=== PATIENT | female | born 1975 | race Caucasian/White ===

== ENCOUNTER 2017-12-14 13:45 | Observation (INO) ==
[2017-12-14] MEDS ORDERED: FAMOTIDINE 20 MG/2 ML VIAL IVP ONE (14:24)
[2017-12-14] MEDS ORDERED: Sodium Chloride 0.9% 1,000 ML PRIMARY IV ONE (14:24)
[2017-12-14] MEDS ORDERED: HYDROmorphone 2 MG/1 ML IVP ONE (14:24)
[2017-12-14] MEDS ORDERED: ONDANSETRON 4 MG/2 ML VIAL IVP ONE (14:24)
[2017-12-14 14:31] LABS: BILIRUBIN,URINE SMALL (NEG); CLARITY,URINE CLEAR (CLEAR); COLOR,URINE YELLOW (Y); GLUCOSE, URINE (UA) NEGATIVE (NEG); OCCULT BLOOD,URINE SMALL (NEG); PROTEIN,URINE 30 mg/dl (NEG); UROBILINOGEN,URINE 0.2 EU/dL (0.2)
[2017-12-14 14:37] LABS: SQUAMOUS EPITHELIAL CELL,UR MODERATE; URINE SAMPLE TYPE CATH SPECIMEN
[2017-12-14 14:46] LABS: BASOPHILS # (AUTO) 0.02 10*3/UL; BASOPHILS % (AUTO) 0.3 % (0-1); EOSINOPHILS # (AUTO) 0.14 10*3/UL; Hematocrit [HCT] 39.9 % (37.0-47.0); Hemoglobin [HGB] 13.4 g/dL (12.0-16.0); LYMPHOCYTES # (AUTO) 1.51 10*3/uL; MEAN CORPUSCULAR HGB CONC 33.6 g/dL (33-37); MEAN CORPUSCULAR VOLUME 101.3 FL (81-99); MEAN PLATELET VOLUME 9.1 FL (7.4-12.2); MONOCYTES # (AUTO) 0.77 10*3/UL (0.3-0.8); MONOCYTES % (AUTO) 10.8 % (5-15); NEUTROPHILS # (AUTO) 4.66 10*3/UL; NEUTROPHILS % (AUTO) 65.6 % (50-80); RED BLOOD COUNT 3.94 10^6/uL (4.20-5.40)
[2017-12-14 14:50] LABS: PLATELET MORPHOLOGY COMMENT NORMAL MORPHOLOGY (NORM); RBC MORPHOLOGY COMMENT NORMAL MORPHOLOGY (NORM); WBC MORPHOLOGY COMMENT NORMAL MORPHOLOGY (NORM)
[2017-12-14 14:57] LABS: BLOOD UREA NITROGEN 7 mg/dL (7-22); BUN/CREATININE RATIO 11.66 (6-20); LIPASE 21 IU/L (23-300); SERUM ALBUMIN 3.5 g/dL (3.5-4.8)
--- NOTE | 2017-12-14 16:36 | DI ---
GALLBLADDER AND LIVER ULTRASOUND, 12/14/2017 2:25 PM: Clinical History: Abdominal pain. Previous Exam: None at this facility. Technique: Scans are performed through the right upper quadrant in multiple projections. The patient was rolled from side to side and the gallbladder was balloted with the probe to facilitate visualizat ion of small gallstones. The gallbladder is well distended and has a normal wall thickness. There are no gallstones. The commo n hepatic duct measures 2 mm, and the common bile duct measures 4 mm. The pancreas is visualized from the head to the body and is normal. The liver has a normal sonographic texture but the liver measure ment indicates there is hepatomegaly. The right kidney, IVC, and aorta are normal. Readin. Normal gallbladder ultrasound. 2. The liver texture is normal but there is hepatomegaly. 3. The right kidney, pancreas, IVC, and aorta are normal.
--- NOTE | 2017-12-14 17:49 | DI ---
CT ABDOMEN SCAN WITH IV CONTRAST, 12/14/2017 3:30 PM : Clinical History: Abdominal pain. Previous Exam: 12/10/2017. Scans are performed from the lower lung bases through the liver and kidneys with IV contrast. 75 mL o f Isovue 300 was injected IV. Volumen oral enterography contrast was administered. Water was used for rectal contrast. The lung bases are clear. There is mild hepatomegaly but the liver itself is otherwise normal. The ga llbladder is grossly normal. There is no abnormality of the spleen, pancreas, and adrenal glands. Bot h kidneys are normal in size, shape, position and contour. There is no hydronephrosis or hydroureter. No renal or ureteral calculi are present. There are no abnormal retrocrural or periaortic nodes. No ascites is present. READIN. There is mild hepatomegaly and in retrospect it was present but not commented upon in the prior r eport. 2. There is no free air or fluid. CT PELVIS SCAN WITH IV CONTRAST, 12/14/2017 3:30 PM: Clinical History: See above. Previous Exam: 12/10/2017. Scans are performed from just superior to the umbilicus to the symphysis pubis with IV contrast. This is the same bolus of contrast used for the CT scans of the abdomen. Scans through the lower abdomen and pelvis show no masses, enhancing lesions, or abnormal fluid colle ctions. There is no adenopathy. The appendix is normal. There are loops of small bowel probably in th e proximal jejunum that are fluid-filled and mildly dilated but have no air-fluid levels. The mucosa shows a normal enhancement. There is no evidence of an internal hernia. The remainder of the small jade wel including the terminal ileum is normal. The colon is also normal. There is infiltrative/inflammat ory change involving the mesenteric fat that primarily is the greater omentum but also mesenteric fat toward the right gutter. These changes are new since the previous exam. There are no hernias. The ut erus and ovaries are normal and unchanged from the previous exam. READIN. There is inflammatory/infiltrative change of the mesenteric fat in the region of the right gutter and probably involving the greater omentum, and these findings are new since the previous exam of . However, no abnormality of the large or small bowel is noted with the exception of some mild ly distended loops of proximal small bowel that do not have air-fluid levels. There is no evidence of an internal hernia. 2. Scans of the pelvis are otherwise normal. There is no fluid in the cul-de-sac. The uterus and ova sheba are normal and unchanged from the prior exam.
[2017-12-14] MEDS ORDERED: HYDROmorphone 2 MG/1 ML IVP PRN (18:07)
[2017-12-14] MEDS ORDERED: ONDANSETRON 4 MG/2 ML VIAL IVP PRN (18:08)
[2017-12-14] MEDS ORDERED: D5-1/2NS 1,000 ML PRIMARY IV SCH (18:15)
--- NOTE | 2017-12-14 19:10 | CONSULT ---
Consult Note - Consult Consult Date: 12/14/17 Reason for Consult: PreOp Consulation : General Surgery Requesting Physician: Dr. Dangelo. Dr. Bermeo. Primary Care Provider: NONE NONE - History of Present Illness History of Present Illness: The patient is a 42-year-old female with approximately 7 days of abdominal pain , nausea, vomiting, fever and chills. She has not actually taken her temperature but has felt feverish and had chills. She has never had this before. She was seen in the emergency department on 12/10/2017. Her last menstrual period was 12/08/2017. She had normal lab work done. She had a CT scan which was normal. It was done with IV contrast. She was diagnosed with gastroenteritis and sent home. She reports the pain has progressively gotten worse. She hadn't had a bowel movement since her last emergency room visit. She has had nausea and vomiting. Hasn't really been able to keep anything down. She returned today for increased pain and nausea. She says the pain starts in the suprapubic region and goes up her right side. She reports it kind of circles around in her abdomen. She reports continued nausea and vomiting. She doesn't remember when she last passed gas. She denies vaginal discharge. She does have some pressure with urination but no burning. The pain is exacerbated by movement and coughing. It is constant. It is a deep throbbing pain. She has tried ibuprofen without help. On arrival she was afebrile and her vital signs were stable. Her white count was normal. Her comprehensive metabolic panel was normal. Her test was negative. Amylase and lipase were normal. Urinalysis showed 4-8 red cells and 4-8 white cells per high power field but it was a clean catch urine. According to the emergency room physician her exam was unchanged. He was the same physician that saw her on the . She had a gallbladder ultrasound done which was normal. She had a CT scan of her abdomen and pelvis with oral, rectal , and IV contrast. There is some mesenteric and omental infiltrated with inflammatory changes. This extends to the right gutter. There is no internal hernia. There is no obviously infarcted omentum. There is no torsed appendix epiploica. There is some 3 cm dilated small bowel but again she had oral contrast. There is no evidence of bowel obstruction. There is normal blood supply to the bowel. The colon appears normal. The appendix was normal. The uterus and ovaries are normal. There is no free air or free fluid. She is being admitted to the hospitalist service and I am asked to see her in consultation. Review of Systems - Constitutional Constitutional: REPORTS: Fever / Chills, Fatigue, Weakness - Gastrointestinal Gastrointestinal / Abdominal: REPORTS: Nausea, Vomiting, Abdominal Pain, Poor Appetite, Regurgitation, See HPI Past Medical History Medical History: Anxiety. Asthma. History of seizure disorder from a traumatic injury(None for a long time.) Surgical History: Tonsillectomy and adenoidectomy. section. Wrist reconstruction. Tobacco Use: Current Every Day Smoker (One half pack a day.) In the Past 12 Months, Have Used or Abuse Any of the Following Substance: None Alcohol Use: Occasionally Medication / Allergies Home Medications: Home Medications 3 Medication Instructions Recorded Confirmed Type Ibuprofen 600 mg PO TID PRN 12/10/17 12/14/17 History Allergies/Adverse Reactions: Allergies 3 Allergy/AdvReac Type Severity Reaction Status Date / Time No Known Allergies Allergy Verified 12/14/17 13:51 Results - Labs CBC and BMP: 12/14/17 14:43 12/14/17 14:43 - Imaging Status: Image Reviewed by Me, Report Reviewed by Me (And discussed with the radiologist.) Exam - Vitals Vital Signs: Vital Signs Temperature 98.2 F Temperature Source Temporal Artery Scan Pulse Rate [Pulse Oximeter] 94 Respiratory Rate 17 Blood Pressure [Left Arm] 111/74 Pulse Ox 93 Oxygen Delivery Method Room Air Height 5 ft 2 in Weight 155 lb - General General Appearance: Cooperative, Mild Distress (Moves about freely in the bed.) - Respiratory Respiratory Exam: POSITIVE: Clear to Auscultation - Bilaterally, Breathing Non Labored - Cardiovascular Cardiovascular Exam: POSITIVE: RRR, No Murmur - GI/Abdominal GI/Abdominal Exam: POSITIVE: Normal Bowel Sounds, Non Distended, Soft Additional GI/Abdominal Exam Details: The abdomen is full but soft. Good bowel tones. When I press around her abdomen with my stethoscope she doesn't seem that tender. When I press with my hand it elicits pain response throughout her abdomen. She has a nonfocal exam. There is no peritoneal irritation. Not an acute surgical abdomen. There is possible mild rebound changes in the left and right lower quadrant. There is some mild right-sided costovertebral angle tenderness. - Rectal Rectal Exam: POSITIVE: Deferred - Neurological Neurological Exam: POSITIVE: Alert, Oriented x 3 - Psychiatric Psychiatric Exam: POSITIVE: Normal Affect, Normal Mood Assessment and Plan - Patient Problems (1) Abdominal pain Current Visit: No Status: Acute Priority: High Onset Date: ~12/07/17 Comment: Etiology unclear. No obvious source for the inflammatory/infiltrative changes in the omentum and mesentery. Not an acute abdomen. I would recommend a trial of conservative care. Would give her a gram of Invanz and repeated every 24 hours. I would get her well hydrated. I would follow her labs and clinical course. If she is not better within 48 hours or shows any signs of deterioration will proceed with exploratory laparoscopy. I discussed all the above with the patient and Dr. Bermeo. I will follow her with you. Code(s): R10.9 - Unspecified abdominal pain (2) Nausea and vomiting Current Visit: Yes Status: Acute Priority: Medium Onset Date: ~12/07/17 Comment: Hydration and appropriate medications. No more than clear liquids at this time pending clinical course. Code(s): R11.2 - Nausea with vomiting, unspecified
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
[2017-12-14] MEDS ORDERED: NICOTINE 14 MG /DAY PATCH TRANSDERM ONE (19:49)
[2017-12-14] MEDS ORDERED: LIDOCAINE W/ SODIUM BICARB 0.5 ML SYR SUBD PRN (19:50)
[2017-12-14] MEDS ORDERED: ACETAMINOPHEN 325 MG TABLET PO PRN (19:50)
[2017-12-14] MEDS ORDERED: CALCIUM CARBONATE 500 MG (TUMS) CHEWABLE TABLET PO PRN (19:50)
[2017-12-14] MEDS ORDERED: DOCUSATE 100 MG CAPSULE PO PRN (19:50)
[2017-12-14] MEDS: Ertapenem Inj 1 GM in Sodium Chloride 0.9% 100 ML IV SCH (20:15)
[2017-12-14] MEDS: NICOTINE 14 MG /DAY PATCH TRANSDERM SCH (20:16)
[2017-12-14] MEDS: D5-1/2NS + 20mEq KCL 1,000 ML PRIMARY IV SCH (20:16)
--- NOTE | 2017-12-14 22:38 | PDOC ---
Abdomen/Flank HPI - General Chief Complaint: Abdomen Pain Stated Complaint: ABDOMINAL PAIN X1 WEEK Date Seen by Provider: 12/14/17 Time Seen by Provider: 14:10 Source: POSITIVE: Patient, Old records Exam Limitations: POSITIVE: No limitations Nurse's Notes Reviewed & Considered: Yes - History of Present Illness Initial Comments: The patient is a 42-year-old female. She presents to the emergency room complaining of a one-week history of poorly localized abdominal pain; somewhat more on the right than the left. She states she has had some "vomiting and dry heaves ". She states that she is "getting dizzy because I'm not eating ". She states she's not had a bowel movement for the past 3 or 4 days. She denies any known fevers or chills. No melena, hematochezia, hematemesis, dysuria or hematuria. She's not had any abdominal surgery. She states she has had " kidney stones "in the past. Emergency room on 12/10/2017 and had normal laboratory values at that time and she also had a CT scan of the abdomen and pelvis with IV contrast which was read as normal by the radiologist. Patient states that her condition is not improved" in fact "patient states her pain is a little bit more persistent and severe now than it was on 12/10/2017. Body Location Affected: REPORTS: Abdomen Timing: REPORTS: Constant Duration: >1 week (Approximately one week) Severity: Moderate Quality: REPORTS: "Pain" Abdominal Pain Onset Location: REPORTS: Generalized abdomen (Somewhat worse on the right than the left) Abdominal Pain Radiation: REPORTS: No radiation Context: DENIES: None, Activity, Bending, Coughing, Fall, Lifting, Near Fall, Rest, Sitting, Sleep, Standing, Turning, Emotional stress, Camping, Bad Food, Out of Country Travel, Other, Recent Surgery, Recent Trauma Modifying Factors: improves with: Vomiting (Intermittent "vomiting and dry heaves ") Associated Symptoms: REPORTS: Nausea, Vomiting, Weakness, Constipation (No bowel movement for 3 or 4 days according to patient). DENIES: Denies symptoms, Back pain, Bloody Emesis, Chest pain, Coffee Grounds Emesis, Chills, Diaphoresis , Fever, Fatigue, Headache, Heartburn, Loss of Appetite, Rash, Shortness of breath, Swelling/mass in abdomen, Syncope, Testicular Pain, Grossly Bloody Diarrhea, Diarrhea, Dysuria, Incontinent Stool, Incontinent Urine, Mucous Diarrhea, Difficulty Walking, Dizziness, Light Headedness, Numbness, Other Similar Symptoms Previously: Yes (as above) Recent Care Received: REPORTS: Recently Seen, Treated by MD (As above) Any Prior Injuries Related to Current Complaint?: No - Patient Home Medications Home Medications: Home Medications Ibuprofen 600 mg PO TID PRN 12/10/17 - Patient Allergies Allergies/Adverse Reactions: Allergies 3 Allergy/AdvReac Type Severity Reaction Status Date / Time No Known Allergies Allergy Verified 12/14/17 13:51 Past Medical History - heen HEENT History: Denies History Cardiovascular History: Denies History Respiratory History: Asthma Gastrointestinal History: Other (please comment) Additional Gastrointestinal History: ABD PAIN AND BLOATING X 2-3 MONTHS Genitourinary History: Denies History Endocrine History: Denies History Musculoskeletal History: Denies History Prosthesis or Implant: No Neurological History: Seizures 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 Blood Disorders: Denies History Psychiatric History: Denies History Additional Psychiatric History: DOES REPORT SHE TAKES LORAZEPAM AND DENIES ETOH USE History of Sexually Transmitted Diseases: No (UNKNOWN) Female Reproductive History: Denies History LMP: 12/08/2017 Cancer History: Denies History In Past Year Been Physically Harmed or Verbally Threatened: No (PER PATIENT) History of MDRO: No History of Other Communicable Diseases: No (UNKNOWN) Tobacco Use: Current Every Day Smoker (One half pack a day.) Alcohol Use: Rarely In the Past 12 Months, Have Used or Abuse Any Substance: None Previous Surgical History: Yes Type / Date of Surgery: TONSILLECTOMY. RIGHT WRIST Anesthesia Reactions: No Malignant Hyperthermia: No Family History of Malignant Hyperthermia: No Significant Family History: No pertinent family hx Past Medical History Reviewed: Reviewed - No Changes ROS - Limitations ROS Limitations: No Limitations Constitution: REPORTS: Denies Symptoms Cardiovascular: REPORTS: Denies Cardiac Symptoms Respiratory: REPORTS: Denies Resp Symptoms Neurological: REPORTS: Denies Neuro Symptoms Gastrointestinal: REPORTS: Abdominal Pain, Nausea, Vomitting ("Dry heaves") Endocrine: REPORTS: Denies Symptoms Musculoskeletal: REPORTS: Denies MS Symptoms Genitourinary: REPORTS: Denies Symptoms Eyes: REPORTS: Denies Symptoms ENT: REPORTS: Denies Symptoms Skin: REPORTS: Denies Skin Symptoms Lympathic: REPORTS: Denies Lympathic Symptoms Immunologic: POSITIVE: Denies Symptoms Psychiatric: POSITIVE: Denies Psych Symptoms Abdominal/Flank Pain PE - General Appearance General Appearance: POSITIVE: Alert, Cooperative, No Evidence of Trauma, Mild Distress. NEGATIVE: No Acute Distress - HEENT HEENT: POSITIVE: Head Inspection Nml, Eyes Inspection Nml, Ears Inspection Nml, Nose Inspection Nml, Oral/Dental Inspect. Nml, Pharynx Inspect. Nml, PERRL, EOMI - Neck Neck: POSITIVE: Normal Inspection, No Apparent Injury - Respiratory Respiratory: POSITIVE: No Respiratory Distress, Breath Sounds Normal, Chest Non- Tender - Cardiovascular Cardiovascular: POSITIVE: Regular Rate and Rhythm, Heart Sounds Normal, Equal Pulses, Strong Pulses Peripheral Pulses: Radial (R): 2+, Radial (L): 2+ - Chest Chest: POSITIVE: Non Tender - Abdomen Abdomen: Soft: (All Quadrants), Normal Bowel Sounds: (All Quadrants) (bowel sounds somewhat depressed), No Splenomegaly: (All Quadrants), No Hepatomegaly: ( All Quadrants), No Guarding: (All Quadrants), No Rebound: (All Quadrants), No Palpable Pulse: (All Quadrants), No Palpabale Mass: (All Quadrants), No Rigidity : (All Quadrants), Tenderness Noted: (RUQ), (LUQ), (RLQ), (LLQ), Hypoactive Bowel Sounds: (RUQ), (LUQ), (RLQ), (LLQ), Distention: (All Quadrants) (patient states her abdomen feels distended) Additional Abdominal Details: Abdominal examination shows bowel sounds be present but somewhat depressed. Patient complains of pain on palpation generalized over the abdomen, but somewhat more on the right than the left, especially the right upper portion of the abdomen. Patient states that her abdomen feels distended, but no gross distention is appreciated clinically. No masses, organomegaly or rebound. - Back Back: POSITIVE: Normal Inspection. NEGATIVE: CVA Tenderness (R), CVA Tenderness (L) - Skin Skin: POSITIVE: Intact, Normal For Race, Warm, Dry, No Rash - Extremities Extremity: Non-Tender: (All Extremities), Normal ROM: (All Extremities), Normal Inspection: (All Extremities) - Neurological Neurological: POSITIVE: Affect Apporpriate, Oriented X3, weasand trimmer Normal As Tested, Motor Normal, Sensation Normal - Psychological Psychiatric: POSITIVE: Affect Appropriate, Mood Appropriate Images - Complete Complete: 1 - Abdominal discomfort/pain Abdomen Progress - Results Reviewed by me Xrays/CTs/US Reviewed by me: Yes Discussed with Radiologist: Yes Radiology Findings: Limited abdominal ultrasound of the right upper quadrant was read as normal with no evidence of gallstones. CT scan of the abdomen and pelvis with IV, oral and rectal contrast was obtained. Radiologist reports mildly dilated loops of the small bowel. He also reports an infiltrative, inflammatory change in the mesenteric fat mostly in the greater omentum but also in the right colic gutter. This changes reportedly new from the CT scan done 12/10/2017. Lab Results Reviewed by Me: Yes ( test negative. Amylase and lipase and urinalysis normal) CBC and BMP: 12/14/17 14:43 12/14/17 14:43 - Patient's Progress Pain Medication Addressed: POSITIVE: Yes (Patient given 2 mg of Dilaudid in the emergency room with good effect) School/Work Release Addressed: POSITIVE: Not Applicable Re-examine Time: 17:55 Re-Examine Comment: Patient states pain is somewhat less on discharge. Patient advised of the results of her abdominal ultrasound and CT scan. Advised I'm not sure what the source of her abdominal pain is, but there is radiographically some evidence of an infiltrate you've or inflammatory process going on in her mesenteric fat. Patient admitted to hospitalist with consultation to surgeon for further evaluation and treatment. - Consult Consult (If Yes, Name of Consulting MD & Time Called): Yes (Dr. Gutierrez and Elvie, [id number]) Consulting MD will see pt:: POSITIVE: [facility] [place] Admit Counseled: POSITIVE: Patient, RE: Lab Results, RE: Radiology Results, RE: DX, RE : Need for F/U Patient Care Time - Estimated PCT Patient Care Time (In Minutes): 60 Vital Signs - Recent Vital Signs Vital Signs: Vital Signs (Last 8 hours) Temp Pulse Pulse Resp BP BP Pulse Ox 12/14/17 18:55 97.6 F 82 16 95/63 92 12/14/17 18:30 98.1 F 91 16 103/75 93 - VS Reviewed Vital Signs Reviewed: Yes Discharge Clinical Impression: Abdominal pain Discharge Disposition: Admit to Inpatient Condition: Stable Date Decision to Admit to Inpatient: 12/14/17 Time Decision to Admit to Inpatient: 17:45
[2017-12-14] MEDS: HYDROmorphone 2 MG/1 ML IVP PRN (23:37)
[2017-12-15] MEDS: HYDROmorphone 2 MG/1 ML IVP PRN ×3 (02:58→08:00)
[2017-12-15 04:34] LABS: BASOPHILS # (AUTO) 0.02 10*3/UL; BASOPHILS % (AUTO) 0.3 % (0-1); EOSINOPHILS # (AUTO) 0.16 10*3/UL; EOSINOPHILS % (AUTO) 2.7 % (0-8); Hematocrit [HCT] 35.2 % (37.0-47.0); Hemoglobin [HGB] 11.7 g/dL (12.0-16.0); LYMPHOCYTES # (AUTO) 1.55 10*3/uL; MEAN CORPUSCULAR HEMOGLOBIN 33.7 PG (27-31); MEAN CORPUSCULAR HGB CONC 33.2 g/dL (33-37); MEAN CORPUSCULAR VOLUME 101.4 FL (81-99); MEAN PLATELET VOLUME 9.3 FL (7.4-12.2); MONOCYTES # (AUTO) 0.77 10*3/UL (0.3-0.8); MONOCYTES % (AUTO) 13.1 % (5-15); NEUTROPHILS # (AUTO) 3.34 10*3/UL; NEUTROPHILS % (AUTO) 57.1 % (50-80); RED BLOOD COUNT 3.47 10^6/uL (4.20-5.40)
[2017-12-15 04:54] LABS: BLOOD UREA NITROGEN 4 mg/dL (7-22); SERUM ALBUMIN 2.7 g/dL (3.5-4.8)
[2017-12-15] MEDS: D5-1/2NS + 20mEq KCL 1,000 ML PRIMARY IV SCH ×2 (05:02→16:31)
[2017-12-15 05:05] LABS: PLATELET MORPHOLOGY COMMENT NORMAL MORPHOLOGY (NORM); RBC MORPHOLOGY COMMENT NORMAL MORPHOLOGY (NORM); WBC MORPHOLOGY COMMENT NORMAL MORPHOLOGY (NORM)
[2017-12-15] MEDS: ONDANSETRON 4 MG/2 ML VIAL IVP PRN (08:00)
--- NOTE | 2017-12-15 09:18 | PDOC(PROG) ---
Date and Time of Service: 12/15/2017 9 AM Interval History: Reports she threw up all night but intake and output shows 100 mL of emesis only. When I walked in the room she was sitting upright in bed looking quite comfortable. She reports her pain is about the same. She reports the Dilaudid is giving her a headache and requests a change in medication. She denies flatus or a bowel movement. She thinks she might overall feel a little bit better. Objective : Data - Labs CBC and BMP: 12/15/17 04:13 12/15/17 04:13 - Imaging Imaging Details: CT is reviewed with the radiologist. No changes from prior dictation. - Vital Signs Vital Signs and I&O: Vital Signs - Last Taken Temperature 98.0 F 12/15/17 04:29 Pulse Rate 89 12/15/17 07:00 Respiratory Rate 21 12/15/17 04:29 Blood Pressure 98/59 12/15/17 04:29 Pulse Ox 96 12/15/17 07:00 Intake and Output (24hr x 4 totals) 12/13/17 12/14/17 12/15/17 12/16/17 05:59 05:59 05:59 05:59 Intake Total 1600 / 1600 Output Total 1101 / 1101 200 / 200 Balance 499 / 499 -200 / -200 Objective : Exam - General General Appearance: No Acute Distress (Looks quite comfortable.), Cooperative - Respiratory Respiratory Exam: Clear to Auscultation - Bilaterally, Breathing Non Labored - Cardiovascular Cardiovascular Exam: RRR, No Murmur - GI/Abdominal GI/Abdominal Exam: Soft, Diminished Bowel Sounds (Upper abdominal bowel tones are normal. Lower slightly diminished.) Additional GI/Abdominal Exam Details: The abdomen is full but soft. Decent bowel tones. Diffuse nonfocal and mild tenderness. No peritoneal signs. Seems a little less tender than yesterday. Tenderness is worse when palpation with fingers is done versus stethoscope. - Neurological Neurological Exam: Alert, Oriented x 3 - Psychiatric Psychiatric Exam: Normal Affect, Normal Mood Assessment and Plan - Patient Problems (1) Abdominal pain Current Visit: Yes Status: Acute Priority: High Onset Date: ~12/07/17 Comment: Certainly no deterioration and possibly slightly better. Has only received 1 dose of antibiotics. Continue current course at this time. See history of present illness. Code(s): R10.9 - Unspecified abdominal pain (2) Nausea and vomiting Current Visit: Yes Status: Acute Priority: Medium Onset Date: ~12/07/17 Comment: Continue current management. Code(s): R11.2 - Nausea with vomiting, unspecified Qualifiers: Vomiting type: unspecified Vomiting Intractability: intractable Qualified Code(s): R11.2 - Nausea with vomiting, unspecified
--- NOTE | 2017-12-15 11:47 | PDOC(PROG) ---
Date and Time of Service: 12/15/2017, 1145 Interval History: No chest pain, shortness of breath, and abdominal pain has improved a bit. The patient states that she had some vomiting, but still has an appetite today which is improvement over the last 6 days. She wants to try some water and saltine crackers today. Objective : Data - Labs CBC and BMP: 12/15/17 04:13 12/15/17 04:13 Additional Lab Results: 12/14/17 12/15/17 20:05 04:13 Troponin I < 0.012 Total Protein 5.9 L Albumin 2.7 L Globulin 3.2 Albumin/Globulin Ratio 0.80 L Objective : Exam - General General Appearance: No Acute Distress, Cooperative Additional General Exam Details: Vital Signs - Last Taken Temperature 98.0 F 12/15/17 04:29 Pulse Rate 90 12/15/17 09:00 Respiratory Rate 21 12/15/17 04:29 Blood Pressure 98/59 12/15/17 04:29 Pulse Ox 95 12/15/17 11:00 - ENT ENT Exam: Mucous Membranes Moist - Respiratory Respiratory Exam: Clear to Auscultation - Bilaterally, Breathing Non Labored - Cardiovascular Cardiovascular Exam: RRR, No Murmur, No Clicks, No Gallops, No Rubs, No JVD - GI/Abdominal GI/Abdominal Exam: Normal Bowel Sounds, Non Tender, Non Distended, Soft Additional GI/Abdominal Exam Details: I was not able to elicit tenderness with palpation of the abdomen today. No complaints from the patient during exam. - Extremities Extremities Exam: No Clubbing Present, No Edema Present, No Cyanosis Present - Neurological Neurological Exam: Alert, Oriented x 3, Normal Gait, No Facial Droop, Speech Intact / Clear, Moves All Extremities Equally Assessment and Plan - Patient Problems (1) Abdominal pain Current Visit: Yes Status: Acute Priority: High Onset Date: ~12/07/17 Code(s): R10.9 - Unspecified abdominal pain (2) Nausea and vomiting Current Visit: Yes Status: Acute Priority: Medium Onset Date: ~12/07/17 Code(s): R11.2 - Nausea with vomiting, unspecified Qualifiers: Vomiting type: unspecified Vomiting Intractability: intractable Qualified Code(s): R11.2 - Nausea with vomiting, unspecified (3) Tobacco abuse Current Visit: Yes Status: Acute Code(s): Z72.0 - Tobacco use (4) Hypokalemia Current Visit: Yes Status: Acute Code(s): E87.6 - Hypokalemia - Assessment / Plan Additional Assessment/Plan Details: Continue IV fluids with potassium Labs ordered for tomorrow already, CMP and CBC with differential. Try clear liquids and saltine crackers today, nothing by mouth post midnight encase of any exploratory laparoscopy, but overall patient states she has improved and feels better. She attributes this to antibiotics. Continue Invanz. I feel if she continues to improve on antibiotics, and may be reasonable to do a course of antibiotics as if this could've been a microperforation with probable follow-up colonoscopy or other studies as an outpatient. We'll discuss with surgery in a.m.
[2017-12-15] MEDS: MORPHINE SULFATE 2 MG/1 ML IVP PRN ×3 (12:38→19:28)
[2017-12-15] MEDS: PANTOPRAZOLE IV 40 MG VIAL IVP SCH ×2 (12:38→22:36)
[2017-12-15] MEDS: Ertapenem Inj 1 GM in Sodium Chloride 0.9% 100 ML IV SCH (19:29)
[2017-12-15] MEDS: NICOTINE 14 MG /DAY PATCH TRANSDERM SCH (19:29)
[2017-12-15] MEDS ORDERED: Patch Removal PATCH TRANSDERM SCH (20:00)
[2017-12-15] MEDS ORDERED: Zolpidem Tab 5 MG TAB PO ONE (22:23)
[2017-12-16] MEDS: D5-1/2NS + 20mEq KCL 1,000 ML PRIMARY IV SCH ×3 (00:52→10:56)
[2017-12-16] MEDS: MORPHINE SULFATE 2 MG/1 ML IVP PRN ×2 (00:52→07:04)
[2017-12-16 04:24] LABS: BASOPHILS # (AUTO) 0.03 10*3/UL; BASOPHILS % (AUTO) 0.5 % (0-1); EOSINOPHILS # (AUTO) 0.14 10*3/UL; EOSINOPHILS % (AUTO) 2.4 % (0-8); Hematocrit [HCT] 37.5 % (37.0-47.0); Hemoglobin [HGB] 12.7 g/dL (12.0-16.0); MEAN CORPUSCULAR HEMOGLOBIN 34.2 PG (27-31); MEAN CORPUSCULAR HGB CONC 33.9 g/dL (33-37); MEAN CORPUSCULAR VOLUME 101.1 FL (81-99); MONOCYTES # (AUTO) 0.59 10*3/UL (0.3-0.8); NEUTROPHILS # (AUTO) 3.43 10*3/UL; NEUTROPHILS % (AUTO) 58.1 % (50-80); RED BLOOD COUNT 3.71 10^6/uL (4.20-5.40)
[2017-12-16 04:31] LABS: PLATELET MORPHOLOGY COMMENT NORMAL MORPHOLOGY (NORM); RBC MORPHOLOGY COMMENT NORMAL MORPHOLOGY (NORM); WBC MORPHOLOGY COMMENT NORMAL MORPHOLOGY (NORM)
[2017-12-16 04:46] LABS: SERUM ALBUMIN 2.8 g/dL (3.5-4.8)
[2017-12-16 05:01] LABS: BLOOD UREA NITROGEN 2 mg/dL (7-22)
[2017-12-16] MEDS: ONDANSETRON 4 MG/2 ML VIAL IVP PRN (07:13)
[2017-12-16 07:19] VITALS: RESP 16
[2017-12-16] MEDS: PANTOPRAZOLE IV 40 MG VIAL IVP SCH (10:36)
[2017-12-16 11:01] VITALS: BP 114/72; TEMP 97.3; O2SAT 95
--- NOTE | 2017-12-16 11:29 | PDOC(PROG) ---
Date and Time of Service: 12/16/2017 11:15 AM Interval History: Feels much better. Some mild abdominal pain and nausea. No further vomiting. Passing gas. Had a small bowel movement. She feels much better than on admission. Really wants to eat and go home. No PID risk factors. No vaginal discharge. Objective : Data - Labs CBC and BMP: 12/16/17 04:08 12/16/17 04:08 - Vital Signs Vital Signs and I&O: Vital Signs - Last Taken Temperature 97.3 F 12/16/17 10:59 Pulse Rate 78 12/16/17 10:59 Respiratory Rate 16 12/16/17 10:59 Blood Pressure 114/72 12/16/17 10:59 Pulse Ox 95 12/16/17 10:59 Intake and Output (24hr x 4 totals) 12/14/17 12/15/17 12/16/17 12/17/17 05:59 05:59 05:59 05:59 Intake Total 2600 / 2600 4783 / 4783 Output Total 1101 / 1101 650 / 650 150 / 150 Balance 1499 / 1499 4133 / 4133 -150 / -150 Objective : Exam - General General Appearance: No Acute Distress, Cooperative - Respiratory Respiratory Exam: Clear to Auscultation - Bilaterally, Breathing Non Labored - Cardiovascular Cardiovascular Exam: RRR, No Murmur - GI/Abdominal GI/Abdominal Exam: Normal Bowel Sounds, Non Tender, Non Distended, Soft Additional GI/Abdominal Exam Details: Minimal if any tenderness. Soft. Positive bowel tones. - Neurological Neurological Exam: Alert, Oriented x 3 - Psychiatric Psychiatric Exam: Normal Affect, Normal Mood Assessment and Plan - Patient Problems (1) Abdominal pain Current Visit: Yes Status: Acute Priority: High Onset Date: ~12/07/17 Comment: Etiology remains unclear. Better on conservative treatment. I would be fine with 1 more dose of IV antibiotics and then home on 5 days of oral Augmentin. Patient should follow up in my office next week. We will plan an outpatient CT with oral contrast for follow-up. Consider colonoscopy. I discussed the above with the patient and Dr. Bermeo. Patient has been instructed to return to the hospital for worsening of symptoms. Code(s): R10.9 - Unspecified abdominal pain (2) Nausea and vomiting Current Visit: Yes Status: Acute Priority: Medium Onset Date: ~12/07/17 Comment: Resolved. Code(s): R11.2 - Nausea with vomiting, unspecified Qualifiers: Vomiting type: unspecified Vomiting Intractability: intractable Qualified Code(s): R11.2 - Nausea with vomiting, unspecified
[2017-12-16] MEDS ORDERED: PANTOPRAZOLE 40 MG TABLET PO ONE (11:36)
[2017-12-16] MEDS ORDERED: HYDROcodone-APAP 5 MG -325 MG TABLET PO PRN (12:54)
--- NOTE | 2017-12-16 13:11 | DCSUMMARY ---
Hospitalization Summary Admit Date: 12/14/2017, 1304 Discharge Date: 12/16/17 Primary Diagnosis:: mesenteric inflammation/abdominal pain Hospital Course: This is a very pleasant 6-year-old female with abdominal pain and mesenteric inflammation on CT scan on admission. She was admitted with observation, surgery consultation was obtained as well. There was no evidence of any perforation, ovarian torsion, ovarian infection, or bowel perforation, and it was very unclear as to what caused this mesenteric inflammation. Certainly mesenteric infarct could be in the differential as well as a carcinomatosis, but the patient got significantly better fairly quickly with antibiotics. We feel the best thing to do at this time is to treat this as if it could've been an infection, and treat for another 5 days with Augmentin therapy after a dose of Invanz today. That will essentially give her a total of 8 days of therapy. The patient's nausea and vomiting got better and she was able to be advanced to regular diet prior to discharge. The patient had microscopic hematuria and proteinuria on her urinalysis. Given her smoking history and the hematuria, I think it best that we have her see the urologist for possible an office cystoscopy. I will see if [facility] urology will be willing to see her. We will help the patient establish primary care physician to also proceed with a well woman examination. She was screened for pelvic inflammatory disease risk factors, but she is currently not in any sexual relationships and has had only 1 partner in the past 15 years. Her risk is low. Given the macrocytosis without anemia, I think we should go ahead and screen for B12 deficiency as well and I have ordered a folate and B12 panel at the time of discharge. Today, she states that her abdominal pain is significantly improved, nearly gone , and she's not had any nausea or vomiting and she wants to eat. She wants to go home. Assessment and Plan: 1. As per discharge assessments noted 2. Disposition: Patient is discharged home. 3. Condition on discharge, stable and improved. 4. Diet: regular diet 5. Activities: resume normal activities 6. Follow-Up: 1. Dr. Campa in a few weeks 2. Dr. Gutierrez in 1 week 3. Urology in a few weeks 7. Medications at the Time of Discharge: Home Medications 3 Medication Instructions Recorded Confirmed Type Ibuprofen 600 mg PO TID PRN 12/10/17 12/14/17 History Amox Tr/Potassium Clavulanate 1 ea PO BID #10 tab 12/16/17 Rx [Augmentin 875-125 Tablet] HYDROcodone/APAP 5/325 Tab [[place] 1 tab PO Q4H PRN #15 tab 12/16/17 Rx 5/325 Tab] Pantoprazole Sodium [Protonix] 40 mg PO DAILY #30 tab 12/16/17 Rx 8. Time, care, counseling and coordination of care for this discharge is greater than 30 minutes. Exam - Vitals Vital Signs: Vital Signs Vital Signs - Last Taken Temperature 97.3 F 12/16/17 10:59 Pulse Rate 78 12/16/17 10:59 Respiratory Rate 16 12/16/17 10:59 Blood Pressure 114/72 12/16/17 10:59 Pulse Ox 95 12/16/17 10:59 Oxygen Delivery Method Room Air Height 5 ft 2 in Weight 171 lb 6 oz - General General Appearance: No Acute Distress, Cooperative - Eye Eye Exam: POSITIVE: No Scleral Icterus - ENT ENT Exam: POSITIVE: Mucous Membranes Moist - Respiratory Respiratory Exam: POSITIVE: Clear to Auscultation - Bilaterally, Breathing Non Labored - Cardiovascular Cardiovascular Exam: POSITIVE: RRR, No Murmur, No Clicks, No Gallops, No Rubs, No JVD - GI/Abdominal GI/Abdominal Exam: POSITIVE: Normal Bowel Sounds, Non Tender, Non Distended, Soft - Extremities Extremities Exam: POSITIVE: No Clubbing Present, No Edema Present, No Cyanosis Present - Neurological Neurological Exam: POSITIVE: Alert, Oriented x 3, Normal Gait, No Facial Droop, Speech Intact / Clear, Moves All Extremities Equally Data Peritnent Studies: 12/14/17 12/16/17 12/16/17 14:28 04:08 04:08 WBC 5.90 Hgb 12.7 Hct 37.5 MCV 101.1 H MCH 34.2 H Plt Count 271 Sodium 140 Potassium 4.0 Chloride 107 Carbon Dioxide 24 Anion Gap 9 BUN 2 L Creatinine 0.5 Estimated GFR > 60 BUN/Creatinine Ratio 4.00 L Glucose 101 Calculated Osmolality 285.0 Calcium 8.0 L Total Bilirubin 0.3 AST 26 ALT 16 Alkaline Phosphatase 60 Total Protein 5.8 L Albumin 2.8 L Globulin 3.0 Albumin/Globulin Ratio 0.90 L Ur Collection Type Cath specimen Urine Color Yellow Urine Clarity Clear Urine Protein 30 A Urine Occult Blood Small H Urine Bilirubin Small Urine RBC 4-8 A Urine WBC 4-8 H Ur Squamous Epith Cells Moderate Ur Culture Indicated? Culture not set Procedures: [address] [facility] [place] [address] PH: DD: [phone] FAX: [phone] ~DIAGNOSTIC IMAGING REPORT~ Patient: AGA DEL REAL : 1975 Sex: F Age: 42 Exam Name: CT Abdomen/Pelvis W Contrast Exam Date: 12/14/17 Report # : [id number] CPT Code: 46107 EMR/MR #: [id number] Ordering: CHAI LACKEY Admiting: Primary: NONE,NONE Attending: Signed CT ABDOMEN SCAN WITH IV CONTRAST, 12/14/2017 3:30 PM : Clinical History: Abdominal pain. Previous Exam: 12/10/2017. Scans are performed from the lower lung bases through the liver and kidneys with IV contrast. 75 mL of Isovue 300 was injected IV. Volumen oral enterography contrast was administered. Water was used for rectal contrast. The lung bases are clear. There is mild hepatomegaly but the liver itself is otherwise normal. The gallbladder is grossly normal. There is no abnormality of the spleen, pancreas, and adrenal glands. Both kidneys are normal in size, shape , position and contour. There is no hydronephrosis or hydroureter. No renal or ureteral calculi are present. There are no abnormal retrocrural or periaortic nodes. No ascites is present. READIN. There is mild hepatomegaly and in retrospect it was present but not commented upon in the prior report. 2. There is no free air or fluid. CT PELVIS SCAN WITH IV CONTRAST, 12/14/2017 3:30 PM: Clinical History: See above. Previous Exam: 12/10/2017. Scans are performed from just superior to the umbilicus to the symphysis pubis with IV contrast. This is the same bolus of contrast used for the CT scans of the abdomen. Scans through the lower abdomen and pelvis show no masses, enhancing lesions, or abnormal fluid collections. There is no adenopathy. The appendix is normal. There are loops of small bowel probably in the proximal jejunum that are fluid- filled and mildly dilated but have no air-fluid levels. The mucosa shows a normal enhancement. There is no evidence of an internal hernia. The remainder of the small bowel including the terminal ileum is normal. The colon is also normal. There is infiltrative/inflammatory change involving the mesenteric fat that primarily is the greater omentum but also mesenteric fat toward the right gutter. These changes are new since the previous exam. There are no hernias. The uterus and ovaries are normal and unchanged from the previous exam. READIN. There is inflammatory/infiltrative change of the mesenteric fat in the region of the right gutter and probably involving the greater omentum, and these findings are new since the previous exam of 12/10/2017. However, no abnormality of the large or small bowel is noted with the exception of some mildly distended loops of proximal small bowel that do not have air-fluid levels. There is no evidence of an internal hernia. 2. Scans of the pelvis are otherwise normal. There is no fluid in the cul-de- sac. The uterus and ovaries are normal and unchanged from the prior exam. Dictated By: 12/14/17 1736 BHARGAV CARL MD. Signed By: 12/14/17 1749 BHARGAV CARL MD. Patient Problems - Patient Problem List (1) Abdominal pain Current Visit: Yes Status: Acute Onset Date: ~12/07/17 Priority: High Code(s): R10.9 - Unspecified abdominal pain Category: Medical (2) Nausea and vomiting Current Visit: Yes Status: Acute Onset Date: ~12/07/17 Priority: Medium Code(s): R11.2 - Nausea with vomiting, unspecified Qualifiers: Vomiting type: unspecified Vomiting Intractability: intractable Qualified Code(s): R11.2 - Nausea with vomiting, unspecified Category: Medical (3) Tobacco abuse Current Visit: Yes Status: Acute Code(s): Z72.0 - Tobacco use Category: Medical (4) Hypokalemia Current Visit: Yes Status: Acute Code(s): E87.6 - Hypokalemia Category: Medical (5) Asymptomatic microscopic hematuria Current Visit: Yes Status: Acute Code(s): R31.21 - Asymptomatic microscopic hematuria Category: Medical
[2017-12-16] MEDS ORDERED: Ertapenem Inj 1 GM in Sodium Chloride 0.9% 100 ML IV SCH (14:00)
[2017-12-16] MEDS ORDERED: PANTOPRAZOLE 40 MG TABLET PO SCH (21:00)
== END 2017-12-16 14:38 | disposition home or self-care (01) ==
LOC: ER 13:45 → MED/SURG 13:45
PROVIDERS: ADMIT Family Medicine; ATTEND Family Medicine